=== PATIENT | male | born 1985 | race Caucasian/White ===

== ENCOUNTER 2017-04-10 12:00 | Day surgery (SDC) | payer BC, OTHER ==
[~2017-04-10] VITALS: Ht 182.9 cm; Wt 96.1 kg
[2017-04-10] MEDS ORDERED: PROPOFOL 10 MG/ML, 20ML ONE (12:13)
[2017-04-10] MEDS ORDERED: LIDOCAINE-MPF 2% ,5ML ONE (12:14)
[2017-04-10] MEDS ORDERED: ROCURONIUM 10 MG/ML,10ML ONE (12:14)
[2017-04-10 12:15] VITALS: BP 128/85
[2017-04-10] MEDS ORDERED: HYDR25TA6 PO (12:15)
[2017-04-10] MEDS ORDERED: ATOR40TA78 PO (12:15)
[2017-04-10] MEDS ORDERED: ASPI-515 PO (12:15)
[2017-04-10] MEDS ORDERED: OMEP40CA6 PO (12:15)
[2017-04-10] MEDS ORDERED: MIDAZOLAM 1 MG/ML, 2ML ONE (12:15)
[2017-04-10] MEDS ORDERED: FENTANYL PF 100 MCG/2ML ONE (12:16)
[2017-04-10] MEDS ORDERED: NO MEDICATIONS (12:26)
[2017-04-10] MEDS ORDERED: ONDANSETRON 2MG/ML, 2ML ONE (12:45)
[2017-04-10] MEDS ORDERED: DEXAMETHASONE 4 MG/ML, 1ML ONE (12:45)
[2017-04-10] MEDS ORDERED: GLYCOPYRROLATE 0.2MG/1ML, 5ML ONE (13:21)
[2017-04-10] MEDS ORDERED: NEOSTIGMINE 1 MG/ML, 10ML ONE (13:21)
[2017-04-10] MEDS ORDERED: OMNIPAQUE 350 MG/ML, 50 ML BOTTLE ONE (13:41)
== END 2017-04-10 15:25 ==
LOC: OUT 12:00
PROVIDERS: ATTEND Internal Medicine
DX: K80.50 Calculus of bile duct without cholangitis or cholecystitis without obstruction (principal)
CPT/HCPCS: 43264; 43275; 74328; C1769; J1100; J2250; J2405; J2704; J2710; J3010; J3490; Q9967